=== PATIENT | female | born 1985 | race Caucasian/White ===

== ENCOUNTER 2016-09-16 03:13 | Emergency (ER) | payer SELFPAY ==
--- NOTE | 2016-09-16 03:21 | EDPHY ---
H & P Source: Patient, EMS HPI/ROS: HPI CHIEF COMPLAINT: Alcohol intoxication, found down unresponsive HISTORY OF PRESENT ILLNESS: This patient is a 30-year-old female, unknown medical history or surgical history she presents emergency room by EMS acutely intoxicated with alcohol possibly benzodiazepine on board. Patient arrives by EMS unresponsive however does respond to painful stimuli. She has a nasal trumpet placed by EMS in her left nare. She was found on the ground. No reported trauma. Past Medical History:Unknown at this time Past Surgical History: Unknown at this time Social History: Unknown Family History: Unknown ROS REVIEW OF SYSTEMS: Review of systems unknown at this time or limited due to intoxication Exam Constitutional somnolent, intoxicated with alcohol Eyes normal conjunctivae and sclera, horizontal beating nystagmus consistent with acute alcohol intoxication HENT normal inspection, atraumatic, moist mucus membranes, no epistaxis, neck supple/ no meningismus, no raccoon eyes. Respiratory clear to auscultation bilaterally, normal breath sounds, no respiratory distress, no wheezing. Cardiovascular rate normal, regular rhythm, no murmur, no edema, distal pulses normal. Gastrointestinal soft, non-tender, no rebound, no guarding, normal bowel sounds, no distension, no pulsatile mass. Genitourinary no CVA tenderness. Musculoskeletal no midline vertebral tenderness, full range of motion, no calf swelling, no tenderness of extremities, no meningismus, good pulses, neurovascularly intact. Skin pink, warm, & dry, no rash, skin atraumatic. Neurologic somnolent, intoxicated alcohol, horizontal beating nystagmus Psychiatric normal mood/affect. Heme/Lymph/Immune no lymphadenopathy. Differential Diagnosis: Includes but is not limited to in a particular order acute alcohol intoxication, alcohol abuse, benzo intoxication, closed head injury, intracranial bleed Medical Decision Making: This patient had an IV established obtain blood work, patient will have a CT scan head and neck to rule out significant trauma. We will check alcohol level, drug screen. 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 Re-evaluation: CT scan of the head without IV contrast. The results of the study are Negative for anything acute traumatic injury. The study was read by Dr. Ladd I viewed the images myself on the PACS system. CT scan of the cervical spine without IV contrast. The results of the study are negative for acute traumatic injury The study was read by Dr. Wilkes I viewed the images myself on the PACS system. Alcohol level 514. Time 4:00 a.m. 0629: It is reported to me by nursing staff patient got out of bed, and fell in her emergency room. I did not witness this directly. But is reported to me that the patient had a head strike. I will repeat her CT scan of her head to make sure she does not have significant trauma from falling. 0642: Re-examination at this time patient is lying on her side sleeping comfortably. 0730: I re-evaluated this patient at this time. Patient still highly intoxicated with alcohol she does open her eyes and has horizontal beating nystagmus but does tell me her name. CT scan of the head without IV contrast The results of the study are negative for acute traumatic injury The study was read by Dr. Ladd I viewed the images myself on the PACS system. 0735: Patient signed over to Dr. Hollingsworth at this time. Patient is still pending sobriety. Repeat CT scan of the head is unremarkable. (Phillip Munoz) Constitutional: Initial Vital Signs Temperature (C) 36.6 C 09/16/16 03:21 Heart Rate 91 09/16/16 03:21 Respiratory Rate 14 09/16/16 03:21 Blood Pressure 116/74 09/16/16 03:21 O2 Sat (%) 93 09/16/16 03:21 O2 Delivery Mode Room Air O2 (L/minute) 3 Allergies/Adverse Reactions: Unable to Assess Allergy (Unverified 09/16/16 03:24) Home Medications: Medication Instructions Recorded Unobtainable 09/16/16 Medical Decision Making Critical Care Time: 0730: I assumed care of this patient from Dr. Munoz at shift change. She is in bed and will sober up prior to discharge. 1018: Patient ambulated without difficulty. She is alert and oriented. She has no complaints. She has a nonfocal exam. She is trying to reach her friends. She declined transfer to the [facility]. She was discharged to go home with her boyfriend. (Bria Hollingsworth) - Data Points Laboratory Results: Laboratory Results 09/16/16 03:15 09/16/16 03:15 Medications Given: Discontinued Medications Sodium Chloride (Ns) 1,000 mls @ 0 mls/hr IV ONCE ONE PRN Reason: Wide Open Stop: 09/16/16 03:24 Last Admin: 09/16/16 04:00 Dose: 1,000 mls Ondansetron HCl (Zofran) 4 mg IVP EDNOW ONE Stop: 09/16/16 04:50 Last Admin: 09/16/16 04:40 Dose: 4 mg Departure - Departure Disposition: Home, Routine, Self-Care Clinical Impression: Alcoholic intoxication Qualifiers: Complication of substance-induced condition: uncomplicated Qualifier Code: ( F10.120) Alcohol abuse with intoxication, uncomplicated Condition: Good Instructions: Alcohol Intoxication (ED), Abuse of Alcohol (ED) Additional Instructions: Stop drinking alcohol in excessive quantities. Follow up with the [facility] for information regarding alcohol abuse Return to the emergency department if you experience any serious worsening of condition. Referrals: [facility] 24 Hours [Outside] - As per Instructions
[2016-09-16] MEDS ORDERED: NS 1,000 ML IV ONE (03:23)
[2016-09-16 03:39] LABS: % IMMATURE GRANULYOCYTES 0.3 % (0.0-1.1); ABSOLUTE IMMATURE GRANULOCYTES 0.04 10^3/uL (0.00-0.10); ADD DIFF? NO; ADD MORPH? NO; ADD SCAN? NO; ATYPICAL LYMPHOCYTE FLAG 10 (0-99); FRAGMENT RBC FLAG 0 (0-99); HEMATOCRIT 41.5 % (38.0-47.0); HEMOGLOBIN 13.9 g/dL (12.6-16.3); LEFT SHIFT FLG 0 (0-99); LIPEMIA HEMOLYSIS FLAG 80 (0-99); MEAN CELL HEMOGLOBIN 32.3 pg (27.9-34.1); MEAN CELL HEMOGLOBIN CONCENTR. 33.5 g/dL (32.4-36.7); MEAN CELL VOLUME 96.5 fL (81.5-99.8); PLATELET CLUMPS FLAG 0 (0-99); PLATELET COUNT 256 10^3/uL (150-400); RED CELL DISTRIBUTION WIDTH 12.3 % (11.5-15.2)
[2016-09-16 03:46] LABS: ANION GAP 21 mEq/L (8-16); CALCIUM 9.7 mg/dL (8.5-10.4); CARBON DIOXIDE 20 mEq/l (22-31); CHLORIDE 106 mEq/L (97-110); CREATININE 0.7 mg/dL (0.6-1.0); GLOMERULAR FILTRATION RATE > 60; GLUCOSE 135 mg/dL (70-100); POTASSIUM 3.7 mEq/L (3.5-5.2); SALICYLATE < 1.0 mg/dL (2.0-20.0); SODIUM 147 mEq/L (134-144)
[2016-09-16 03:58] LABS: ETHANOL SERUM 514 mg/dL (0-10)
[2016-09-16] MEDS ORDERED: ONDANSETRON 4 MG/2 ML VIAL ONE (04:36)
[2016-09-16] MEDS ORDERED: ONDANSETRON 4 MG/2 ML VIAL IVP ONE (04:49)
[2016-09-16 07:20] VITALS: RESP 16
[2016-09-16 10:26] VITALS: BP 108/56; PULSE 76; O2SAT 95
[2016-09-16 10:47] VITALS: TEMP 97.5
--- NOTE | 2016-09-16 15:41 | CT ---
CT Brain (Without Contrast) at 0424 hours History: EtOH, fall, head trauma, altered mental status. Comparison: None. Technique: Axial computed tomographic images of the brain without contrast. Dose reduction technique s were utilized. Findings: Ventricles, cisterns, and sulci are normal without atrophy, hydrocephalus, midline shift/h erniation, or epidural/subdural hematomas. No acute intraparenchymal hemorrhage, definite infarct, or mass effect. Bone windows demonstrate no displaced fractures. Paranasal sinuses and mastoid air cell s are clear. Impression: 1. Normal CT brain without contrast. 2. No epidural or subdural hematoma. Findings and recommendations discussed with Emergency Department physician, Dr. Munoz at 0430 hours today. Final report concurs with initial preliminary interpretation.
--- NOTE | 2016-09-16 15:41 | CT ---
CT Brain (Without Contrast) at 0708 hours History: EtOH, head trauma, fall, altered mental status. Comparison: Earlier today. Technique: Axial computed tomographic images of the brain without contrast. Dose reduction technique s were utilized. Repeat scan due to patient motion artifact. Findings: The study is limited due to patient motion artifact. Ventricles, cisterns, and sulci are n ormal without atrophy, hydrocephalus, midline shift/herniation, or epidural/subdural hematomas. No ac anika intraparenchymal hemorrhage, definite infarct, or mass effect. Bone windows demonstrate no displa nette fractures. Paranasal sinuses and mastoid air cells are clear. Impression: 1. Normal CT brain without contrast. 2. No epidural or subdural hematomas. Findings and recommendations discussed with Emergency Department physician, Dr. Munoz at 0730 hours today. Final report concurs with initial preliminary interpretation.
--- NOTE | 2016-09-16 15:48 | CT ---
CT Scan of the Cervical Spine (Without Contrast) (With Multiplanar Reconstructions) at 0424 hours Clinical Indications: EtOH. Fall, pain. Technique: Thinly collimated multidetector helical CT imaging of the cervical spine was reviewed in multiple planes. Multiplanar reconstructions reviewed on Reachable workstation and performed to better e valuate alignment. Dose reduction techniques were utilized. Findings: No definite acute cervical spine fracture. No evidence of cervical spine fracture or compr ession fracture. Spinous processes appear intact. Odontoid appears intact. C5-C6 mild degenerative di sk disease and mild dorsal disk/osteophyte complex, resulting in mild central canal stenosis. No prev ertebral soft tissue swelling. Impression: 1. No definite fracture. 2. If there is persistent pain or neurological deficit, recommend MR cervical spine and consider flex ion and extension views, if clinically indicated. Findings and recommendations discussed with Emergency Department physician, Dr. Phillip Munoz at 04 30 hours today. Final report concurs with initial preliminary interpretation.
== END 2016-09-16 10:47 | disposition home or self-care (01) ==
DX: F10.120 Alcohol abuse with intoxication, uncomplicated (principal)
CPT/HCPCS: 96374; G0480; J2405